=== PATIENT | female | born 1995 ===

== ENCOUNTER 2018-08-20 20:27 | Emergency (ER) | payer BC, SELFPAY ==
[2018-08-20 20:31] VITALS: BP 126/78; PULSE 76; RESP 14; TEMP 36.8; O2SAT 100
--- NOTE | 2018-08-20 20:39 | ED.GENADUL_ITS ---
Discharge Plan Disposition Patient Disposition: HOME Condition: Improving Discharge Details Chief Complaint: Urinary Clinical Impression: Urinary tract infection ED Provider: Benny Hidalgo Home Meds and New Rx's Prescriptions: No Action sumatriptan-naproxen 10-60 mg Tablet RF: 0 Discharge Instructions Instructions: Urinary Tract Infection in Women (ED) Additional Instructions: May use Pyridium as needed 3 times daily for 2 days to help with the irritating symptoms of acute urinary tract infection. Please take antibiotics as prescribed. Home to rest. Please follow-up with Ignacia Seaman if not improved in 3-5 days time. Return to the ER for any acute concerns Medical Decision Making 23-year-old female presents with 2 days of urinary frequency and urgency associated today with bilateral flank pain and nausea with subjective fever and chills. She arrives to triage with normal vital signs a reassuring exam. She has a history of recurrent urinary tract infections, none within the past 3 months. Urinalysis consistent with acute urinary tract infection. We will treat with oral antibiotics and Pyridium. Patient stable for discharge at this time, she does understand return precautions to the ER. Lab Data Lab results reviewed: Yes I reviewed the patient's lab results. Laboratory Tests Range/Units 08/20/18 20:41 Urine Color (Yellow) Straw Urine Clarity Clear Urine pH (5-8) 7.0 Ur Specific [place] (1.005-1.025) 1.010 Urine Protein (Negative) mg/dL Negative Urine Ketones (Negative) mg/dL Negative Urine Blood (Negative) Large H Urine Nitrite (Negative) Negative Urine Bilirubin (Negative) Negative Urine Urobilinogen (Up TO 0.2) EU/dL 0.2 Ur Leukocyte Esterase (Negative) Small H Urine Glucose (Negative) mg/dL Negative HPI General Mode of arrival: ambulatory . Date/Time Provider Initiated Documentation: 08/20/18 20:31 . Limitations to Documentation: no limitations . Information obtained by: patient . History of Present Illness 23 year old F presents to the emergency department with the chief complaint of Urinary burning and frequency over 2 days time. Mild low back pain, described as mild, Musa lity is described as aching, and is localized to the abdomen. Patient reports no radiation. Patient started experiencing this day(s) and it has been constant. No relieving factors improve symptom(s), No exacerbating factors reported . Patient notes fever/chills and loss of appetite. Patient did receive the following treatments prior to arrival, none Related Data Home Medications Medication Instructions Recorded Confirmed sumatriptan-naproxen 08/20/18 Allergies Allergy/AdvReac Type Severity Reaction Status Date / Time gluten AdvReac Unverified 08/20/18 20:34 General Stated Complaint: Urinary REASMO: 4 Review of Systems Review of Systems 6 systems reviewed and otherwise negative [facility] Social History Smoking/Tobacco Use Status: Never Exam Narrative Exam Narrative: GEN: awake, alert, oriented 3. Pleasant, well groomed, interactive. HEAD: Normocephalic, atraumatic ENT: Mucous membranes moist, oropharynx unremarkable, External ear exam unremarkable EYES: PERRL, EOMI NECK: Full ROM, no ANI, no menigismus CHEST/RESP: Nontender, clear to auscultation bilateral, no wheeze/rhonchi/rales CARDIOVASCULAR: RRR, no murmur, rub miriam. 2+ Rad pulse bilateral ABDOMEN: Soft, nontender, no mass. +Bowel sounds EXT: Full ROM, no edema, no rash Neuro: Grossly normal neurologic exam, conversant, interactive. Psych: Speech fluent, thoughts congruent, affect normal Course Vital Signs Temperature 36.8 C 08/20/18 20:31 Pulse 76 08/20/18 20:31 Respiratory Rate 14 08/20/18 20:31 Blood Pressure 126/78 08/20/18 20:31 Pulse Oximetry 100 08/20/18 20:31 Temperature 36.8 C 08/20/18 20:31 Temperature Source Temporal Artery Scan 08/20/18 20:31 Pulse 76 08/20/18 20:31 Respiratory Rate 14 08/20/18 20:31 Respiratory Effort Non-Labored 08/20/18 20:33 Blood Pressure 126/78 08/20/18 20:31 Blood Pressure Position Sitting 08/20/18 20:31 Pulse Oximetry 100 08/20/18 20:31 Pain Level 3 08/20/18 20:35
[2018-08-20 20:58] LABS: Bilirubin Negative (Negative); Blood Large (Negative); Clarity Clear; Glucose Negative (Negative); Ketones Negative (Negative); Leukocyte Esterase Small (Negative); Nitrite Negative (Negative); Urobilinogen 0.2 EU/dL (Up TO 0.2)
[2018-08-20 21:07] LABS: Bacteria Few HPF (Negative); C & S Indicated? No; Casts Negative LPF (Negative); Crystals Negative HPF (Negative); Epithelial Cells Rare HPF (Negative); Mucus Negative (Negative); Other Cells Few Renal (Negative); WBC 0-2 HPF (0-5)
[2018-08-20 21:19] VITALS: BP 126/78; PULSE 76; RESP 14; TEMP 36.8; O2SAT 100
[2018-08-20] MEDS: Phenazopyridine 100 MG TAB PO (21:19)
[2018-08-20] MEDS: Cephalexin 500 MG CAP 1000 MG PO (21:19)
== END 2018-08-20 21:18 | disposition home or self-care (01) ==
PROVIDERS: Emergency Provider Emergency Medicine; PCP Nurse Practitioner Family
DX: N39.0 Urinary tract infection, site not specified (principal); R10.31 Right lower quadrant pain; R10.32 Left lower quadrant pain
CPT/HCPCS: 81025; 99283; 81003; 81015